=== PATIENT | female | born 1975 | race African-American/Black ===

== ENCOUNTER 2021-11-07 09:39 | Emergency (ER) | payer OTHER ==
[~2021-11-07] VITALS: Ht 172.7 cm; Wt 66.0 kg
[2021-11-07] MEDS ORDERED: SODIUM CHLORIDE 0.9% 1,000 ML IV ONE (10:30)
[2021-11-07 11:48] LABS: BASOPHILS % 1.2 % (0.0-2.0); EOSINOPHILS % 4.4 % (0.0-5.0); HEMATOCRIT. 38.3 % (36.0-48.0); HEMOGLOBIN. 12.8 g/dL (12.0-16.0); LYMPHOCYTES % 35.7 % (20.0-50.0); MEAN CORPUSCULAR HEMOGLOBIN 31.4 pg (28.0-32.0); MEAN PLATELET VOLUME 9.8 fl (7.4-10.4); MONOCYTES % 9.7 % (2.0-8.0); PLATELET 251 x1000/uL (130-400); RED BLOOD CELL COUNT 4.07 mill/uL (4.2-5.4); RED CELL DISTRIBUTION WIDTH 14.1 % (11.6-14.6)
[2021-11-07 11:55] LABS: CHLORIDE 109 mEq/L (98-107)
[2021-11-07] MEDS ORDERED: AMLO5TAB88 MT (12:27)
[2021-11-07 12:45] VITALS: BP 143/84
== END 2021-11-07 13:16 | disposition home or self-care (01) ==
LOC: ER 09:39
DX: R03.0 Elevated blood-pressure reading, without diagnosis of hypertension (principal); D72.819 Decreased white blood cell count, unspecified; R42 Dizziness and giddiness; F17.210 Nicotine dependence, cigarettes, uncomplicated
CPT/HCPCS: 36415; 71045; 80053; 83880; 84484; 85025; 87426; 96360; 99284; J7030